=== PATIENT | male | born 1965 | race Asian ===

== ENCOUNTER 2017-04-04 00:31 | Emergency (ER) | payer SELFPAY ==
[~2017-04-04] VITALS: Ht 177.8 cm; Wt 68.0 kg
[2017-04-04 00:40] VITALS: BP 146/82
--- NOTE | 2017-04-04 00:45 | Emergency Room Report ---
History of Present Illness General Source: Patient, EMS Present Illness HPI [id number] BIBEMS for ?AMS Patient found in car, facing traffic, parked on side of road Has cat with him Was on way to [place] to "work on a screenplay with a friend." Admits to being cinematographer HIV+, DM Took Ambien a couple times last few days, including this morning Denies drug, ETOH abuse Denies HI, SI, AVH, psych issues Allergies: Coded Allergies: No Known Allergies (Unverified , 04/04/17) Patient History Past Medical History: DM, HIV Past Surgical History: none, other - Thyroidectomy Pertinent Family History: none Social History: Denies: smoking, alcohol use, drug use Immunizations: UTD Reviewed Nursing Documentation: PMH: Agreed, PSxH: Agreed Review of Systems All Other Systems: negative except mentioned in HPI Physical Exam Sp02 EP Interpretation: reviewed, normal General Appearance: normal inspection, well appearing, no apparent distress, alert, GCS 15, non-toxic Head: normocephalic, atraumatic Eyes: bilateral eye PERRL, bilateral eye EOMI ENT: normal ENT inspection, hearing grossly normal, normal voice Neck: normal inspection, full range of motion, supple, no bony tend Respiratory: normal inspection, lungs clear, normal breath sounds, no respiratory distress, no retraction, no wheezing Cardiovascular #1: regular rate, rhythm, no edema Gastrointestinal: normal inspection, normal bowel sounds, non tender, soft, no guarding, no hernia Genitourinary: no CVA tenderness Musculoskeletal: normal inspection, back normal, normal range of motion, Zia' s Sign negative Neurologic: normal inspection, alert, responsive, speech normal Psychiatric: normal inspection, judgement/insight normal, mood/affect normal Skin: normal inspection, normal color, no rash, warm/dry Medical Decision Making Diagnostic Impression: Primary Impression: Altered mental status Qualified Codes: R41.82 - Altered mental status, unspecified Additional Impressions: Dehydration Methamphetamine abuse ER Course VS with tachycardia Utox + for meth No leuks. H&H stable. TSH low, likely d/t hyperthyroidism Patient remains calm, cooperative in ED No SI, HI, AVH Did not require treatment for agitation from meth use Was clinically dehydrated, Tx with IVF NS DC in AM after multiple hours observation EKG Diagnostic Results Rate: normal Rhythm: NSR ST Segments: no acute changes ASA given to the pt in ED: No Status: improved Disposition: HOME, SELF-CARE MIKE GONZALEZ M.D. Apr 04, 2017 00:45
[2017-04-04 01:11] LABS: BASOPHILS % (AUTO) 1.3 % (0.0-2.0); EOSINOPHILS % (AUTO) 0.1 % (0.0-3.0); HEMOGLOBIN 17.7 G/DL (14.2-18.0); LYMPHOCYTES % (AUTO) 22.8 % (20.0-45.0); MEAN CORPUSCULAR VOLUME 92 FL (80-99); NEUTROPHILS % (AUTO) 65.9 % (45.0-75.0); PLATELET COUNT 255 K/UL (150-450); RED BLOOD COUNT 5.31 M/UL (4.70-6.10); RED CELL DISTRIBUTION WIDTH 11.4 % (11.6-14.8); WHITE BLOOD COUNT 10.2 K/UL (4.8-10.8)
[2017-04-04 01:35] LABS: ALANINE AMINOTRANSFERASE 45 U/L (12-78); ALBUMIN 4.3 G/DL (3.4-5.0); ALBUMIN/GLOBULIN RATIO 1.1 (1.0-2.7); ALKALINE PHOSPHATASE 69 U/L (46-116); ANION GAP 14 mmol/L (5-15); ASPARTATE AMINO TRANSFERASE 53 U/L (15-37); BILIRUBIN,TOTAL 1.4 MG/DL (0.2-1.0); BLOOD UREA NITROGEN 17 mg/dL (7-18); CALCIUM 10.1 MG/DL (8.5-10.1); CARBON DIOXIDE 24 MMOL/L (21-32); CHLORIDE 104 MMOL/L (98-107); CREATININE 1.2 MG/DL (0.55-1.30); POTASSIUM 3.7 MMOL/L (3.5-5.1); SODIUM 142 MMOL/L (136-145)
[2017-04-04 01:43] LABS: BILIRUBIN,DIRECT 0.3 MG/DL (0.0-0.3)
[2017-04-04 01:54] LABS: APPEARANCE,URINE CLEAR; BILIRUBIN, URINE NEGATIVE (NEGATIVE); GLUCOSE, URINE (UA) NEGATIVE (NEGATIVE); KETONES,URINE 1+ (NEGATIVE); LEUKOCYTE ESTERASE ,URINE 1+ (NEGATIVE); NITRITE,URINE NEGATIVE (NEGATIVE); PH,URINE 5 (4.5-8.0); PROTEIN,URINE 2+ (NEGATIVE); UROBILINOGEN,URINE NORMAL MG/DL (0.0-1.0)
[2017-04-04 02:08] LABS: COLOR,URINE YELLOW
[2017-04-04 03:58] VITALS: BP 142/85
--- NOTE | 2017-04-14 16:23 | Cardiology Report ---
APPROVED REPORT EKG Measurement Heart [id number] MS [id number] Sinus tachycardia Otherwise normal ECG
--- NOTE | 2017-04-14 16:23 | Cardiology Report ---
APPROVED REPORT EKG Measurement Heart [id number] [place] [id number] [id number] Sinus tachycardia Otherwise normal ECG
--- NOTE | 2017-04-14 16:23 | Cardiology Report ---
APPROVED REPORT EKG Measurement Heart [id number] [place] 154P65 [id number] Sinus tachycardia Otherwise normal ECG
== END 2017-04-04 03:58 | disposition home or self-care (01) ==
LOC: EDBD 00:31 → EMR 00:46
DX: R41.82 Altered mental status, unspecified (principal); E86.0 Dehydration; F15.10 Other stimulant abuse, uncomplicated; E11.9 Type 2 diabetes mellitus without complications
CPT/HCPCS: 36415; 80053; 80307; 81003; 82248; 84443; 84484; 85025; 93005; 96360; 99284; G0480; 80329